=== PATIENT | male | born 1965 | race Caucasian/White ===

== ENCOUNTER 2020-11-15 10:59 | Emergency (ER) | payer MEDICARE | END 2020-11-15 12:15 | disposition left against medical advice (07) | LOC: ER1 10:59 | DX: R53.1 Weakness (principal); Z53.21 Procedure and treatment not carried out due to patient leaving prior to being seen by health care provider ==

== ENCOUNTER 2021-03-19 08:23 | Emergency (ER) | payer MEDICARE, OTHER | END 2021-03-19 13:43 | disposition home or self-care (01) | LOC: ER1 08:23 | DX: M54.5 Low back pain (principal); E11.9 Type 2 diabetes mellitus without complications; F17.200 Nicotine dependence, unspecified, uncomplicated; Z88.2 Allergy status to sulfonamides; Z88.0 Allergy status to penicillin | CPT/HCPCS: 82962; 96372; 99283; J1885 ==

== ENCOUNTER 2021-05-06 02:35 | Emergency (ER) | payer MEDICARE, OTHER ==
[2021-05-06 03:09] LABS: HEMOGLOBIN 13.8 gm/dl (14.0-17.5); RED BLOOD COUNT 4.08 M/UL (4.20-5.50); WHITE BLOOD COUNT 8.8 K/UL (4.5-11.0)
[2021-05-06 03:28] LABS: BUN/CREATININE RATIO 8 (0-10)
[2021-05-06 15:24] LABS: ACINETOBACTER BAUMANNII Not Detected (Negative); CANDIDA ALBICANS Not Detected (Negative); CANDIDA KRUSEI Not Detected (Negative); CANDIDA TROPICALIS Not Detected (Negative); ENTEROCOCCUS Not Detected (Negative); ESCHERICHIA COLI Not Detected (Negative); HAEMOPHILUS INFLUENZAE Not Detected (Negative); KLEBSIELLA OXYTOCA Not Detected (Negative); KLEBSIELLA PNEUMONIAE Not Detected (Negative); KPC-CARBAPENEM-RESISTANCE GENE Not Detected (Negative); PROTEUS Not Detected (Negative); PSEUDOMONAS AERUGINOSA Not Detected (Negative); SERRATIA MARCESANS Not Detected (Negative); STAPHYLOCOCCUS Not Detected (Negative); STAPHYLOCOCCUS AUREUS Not Detected (Negative); STREP AGALACTIAE (GROUP B) Not Detected (Negative); STREP PYOGENES (GROUP A) Not Detected (Negative); STREPTOCOCCUS Not Detected (Negative); mecA (METHICILLIN RESIST GENE Not Detected (Negative); vanA/B (VANCOMYCIN RESIST GENE Not Detected (Negative)
== END 2021-05-06 13:25 | disposition short-term general hospital (02) ==
LOC: ER1 02:35
PROVIDERS: Family Medicine
DX: L03.116 Cellulitis of left lower limb (principal); Z96.652 Presence of left artificial knee joint
CPT/HCPCS: 71045; 73562; 80053; 85025; 85652; 86140; 87040; 87070; 87077; 87150; 87186; 87205; 96374; 96375; 99284; J2543; J3370; J7050

== ENCOUNTER 2021-11-05 03:35 | Emergency (ER) | payer MEDICARE, OTHER ==
[2021-11-05 04:08] LABS: HEMOGLOBIN 13.9 gm/dl (14.0-17.5); RED BLOOD COUNT 4.17 M/UL (4.20-5.50); WHITE BLOOD COUNT 8.6 K/UL (4.5-11.0)
[2021-11-05 05:06] LABS: BUN/CREATININE RATIO 31 (0-10)
== END 2021-11-05 11:29 | disposition home or self-care (01) ==
LOC: ER1 03:35
PROVIDERS: Emergency Medicine
DX: F15.129 Other stimulant abuse with intoxication, unspecified (principal); F12.90 Cannabis use, unspecified, uncomplicated; F19.90 Other psychoactive substance use, unspecified, uncomplicated; R79.89 Other specified abnormal findings of blood chemistry; M25.462 Effusion, left knee; R73.9 Hyperglycemia, unspecified; R00.0 Tachycardia, unspecified; Z96.652 Presence of left artificial knee joint; Z20.822 Contact with and (suspected) exposure to COVID-19
CPT/HCPCS: 0240U; 70450; 71045; 73560; 80053; 80307; 81001; 83605; 83735; 84100; 85025; 87040; 87086; 93005; 96372; 96374; 96375; 99285; J2543; J3370; J3411; J7030

== ENCOUNTER 2022-03-16 21:22 | Emergency (ER) | payer MEDICARE, OTHER ==
[2022-03-16 21:56] LABS: HEMOGLOBIN 13.4 gm/dl (14.0-17.5); RED BLOOD COUNT 4.29 M/UL (4.20-5.50)
[2022-03-16 22:18] LABS: BUN/CREATININE RATIO 14 (0-10)
== END 2022-03-17 06:16 | disposition short-term general hospital (02) ==
LOC: ER1 21:22
PROVIDERS: Family Medicine
DX: M54.2 Cervicalgia (principal); W01.10XA Fall on same level from slipping, tripping and stumbling with subsequent striking against unspecified object, initial encounter; Z51.81 Encounter for therapeutic drug level monitoring
CPT/HCPCS: 36600; 70450; 72125; 72128; 80053; 80307; 81001; 82803; 83605; 85025; 85610; 85730; 86850; 86900; 86901; 93005; 99285; G0480

== ENCOUNTER 2022-04-20 17:30 | Inpatient (IN) | payer MEDICARE, OTHER ==
[~2022-04-20] VITALS: Ht 172.7 cm; Wt 56.7 kg
[2022-04-20 18:46] LABS: HEMOGLOBIN 12.9 gm/dl (14.0-17.5); RED BLOOD COUNT 4.18 M/UL (4.20-5.50); WHITE BLOOD COUNT 4.9 K/UL (4.5-11.0)
[2022-04-20 19:04] LABS: BORDETELLA PARAPERTUSSIS Not Detected (Not Detectd); BORDETELLA PERTUSSIS Not Detected (Not Detectd); CHLAMYDIA PNEUMONIAE Not Detected (Not Detectd); CORONAVIRUS HKU1 Not Detected (Not Detectd); CORONAVIRUS NL63 Not Detected (Not Detectd); CORONAVIRUS OC43 Not Detected (Not Detectd); CORONOAVIRUS 229E Not Detected (Not Detectd); HUMAN METAPNEUMOVIRUS Not Detected (Not Detectd); HUMAN RHINOVIRUS/ENTEROVIRUS Not Detected (Not Detectd); INFLUENZA A Not Detected (Not Detectd); INFLUENZA B Not Detected (Not Detectd); MYCOPLASMA PNEUMONIAE Not Detected (Not Detectd); PARAINFLUENZA VIRUS 1 Not Detected (Not Detectd); PARAINFLUENZA VIRUS 2 Not Detected (Not Detectd); PARAINFLUENZA VIRUS 3 Not Detected (Not Detectd); PARAINFLUENZA VIRUS 4 Not Detected (Not Detectd); RESPIRATORY SYNCYTIAL VIRUS Not Detected (Not Detectd)
[2022-04-20 19:41] LABS: BUN/CREATININE RATIO 15 (0-10)
[2022-04-20 20:11] LABS: SARS-CoV-2 NOT DETECTED (Not Detectd)
[2022-04-21 07:05] LABS: HEMOGLOBIN 12.1 gm/dl (14.0-17.5); RED BLOOD COUNT 3.95 M/UL (4.20-5.50); WHITE BLOOD COUNT 3.8 K/UL (4.5-11.0)
[2022-04-21 07:29] LABS: BUN/CREATININE RATIO 17 (0-10)
[2022-04-21] MEDS ORDERED: ALPRAZOLAM2 MG PO (11:44)
[2022-04-21] MEDS ORDERED: LANTUS SOL100 UNIT/1 SQ (11:45)
[2022-04-21] MEDS ORDERED: PERCOCET 7.5-31 EACH PO (11:45)
[2022-04-21] MEDS ORDERED: GABAPENTIN300 MG PO (11:45)
[2022-04-21] MEDS ORDERED: CYCLOBENZAPRINE10 MG PO (11:45)
--- NOTE | 2022-04-21 16:11 | NUR ---
MULTIPLE CALLS MADE TO PT'S SISTER - ROSE MARY MARVIN @ [phone] - TO OBTAIN MORE INFORMATION ABOUT PT'S CONDITION AND LIVING ARRANGEMENTS. VOICEMAIL BOX IS FULL. WILL ATTEMPT ANOTHER CALL BEFORE END OF SHIFT
[2022-04-22 03:44] LABS: BUN/CREATININE RATIO 18 (0-10)
[2022-04-24 02:57] LABS: HEMOGLOBIN 11.9 gm/dl (14.0-17.5); RED BLOOD COUNT 3.92 M/UL (4.20-5.50)
[2022-04-24 03:02] LABS: WHITE BLOOD COUNT 8.9 K/UL (4.5-11.0)
[2022-04-24 03:19] LABS: BUN/CREATININE RATIO 20 (0-10)
--- NOTE | 2022-04-24 09:00 | NUR ---
PATIENT ON THE PHONE WITH [facility] REQUESTING TO BE TRANSFERRED. PATIENT BEING VERY HOSTILE TOWARD STAFF AND USING INAPPROPRIATE LANGUAGE. PT REQUESTING TO SIGN OUT AMA. DR. OSIRIS ANTHONY.
[2022-04-26 14:45] LABS: HEMOGLOBIN 12.2 gm/dl (14.0-17.5); RED BLOOD COUNT 3.98 M/UL (4.20-5.50)
[2022-04-26 15:08] LABS: BUN/CREATININE RATIO 30 (0-10)
[2022-04-27 06:41] LABS: HEMOGLOBIN 11.3 gm/dl (14.0-17.5); RED BLOOD COUNT 3.78 M/UL (4.20-5.50); WHITE BLOOD COUNT 3.5 K/UL (4.5-11.0)
[2022-04-27 07:01] LABS: BUN/CREATININE RATIO 26 (0-10)
[2022-04-28 10:52] LABS: RED BLOOD COUNT 3.87 M/UL (4.20-5.50)
[2022-04-28 10:56] LABS: WHITE BLOOD COUNT 5.1 K/UL (4.5-11.0)
[2022-04-28 11:30] LABS: BUN/CREATININE RATIO 34 (0-10)
[2022-04-30 06:57] LABS: BUN/CREATININE RATIO 40 (0-10)
[2022-04-30 07:02] LABS: HEMOGLOBIN 11.4 gm/dl (14.0-17.5); RED BLOOD COUNT 3.72 M/UL (4.20-5.50); WHITE BLOOD COUNT 4.9 K/UL (4.5-11.0)
[2022-05-01 06:20] LABS: HEMOGLOBIN 11.5 gm/dl (14.0-17.5); RED BLOOD COUNT 3.73 M/UL (4.20-5.50); WHITE BLOOD COUNT 4.6 K/UL (4.5-11.0)
[2022-05-01 06:44] LABS: BUN/CREATININE RATIO 35 (0-10)
--- NOTE | 2022-05-01 15:10 | NUR ---
ENEMA GIVEN TO PATIENT. STAFF ASSISTED PATIENT TO BEDSIDE COMMODE WHERE HE HAD A XL FORMED BOWEL MOVEMENT.
[2022-05-02 04:08] LABS: HEMOGLOBIN 11.5 gm/dl (14.0-17.5); RED BLOOD COUNT 3.72 M/UL (4.20-5.50)
[2022-05-02 04:09] LABS: WHITE BLOOD COUNT 5.8 K/UL (4.5-11.0)
[2022-05-02 04:56] LABS: BUN/CREATININE RATIO 33 (0-10)
[2022-05-02] MEDS ORDERED: CHRONULAC20 GM/30 M PO (11:26)
[2022-05-02] MEDS ORDERED: ALPRAZOLAM0.5 MG PO (11:26)
[2022-05-02] MEDS ORDERED: ROXICODONE TAB 55 MG PO (11:26)
[2022-05-02] MEDS ORDERED: LOPRESSOR 25 MG25 MG PO (11:26)
[2022-05-02] MEDS ORDERED: DOCUSATE SODIU100 MG PO (11:26)
[2022-05-02] MEDS ORDERED: LANTUS INS100 UTS/M1 SC (11:26)
[2022-05-02] MEDS ORDERED: MAG-OX 400 TAB400 MG PO (11:26)
[2022-05-02] MEDS ORDERED: FLOMAX 0.4 MG0.4 MG PO (11:26)
[2022-05-02] MEDS ORDERED: POLYETHYLENE GL17 GM PO (11:26)
[2022-05-02] MEDS ORDERED: ACETAMINOPHEN325 MG PO (11:26)
[2022-05-02] MEDS ORDERED: BISACODYL10 MG PR (11:26)
[2022-05-02] MEDS ORDERED: ZYVOX600 MG PO (11:26)
[2022-05-02] MEDS ORDERED: HUMALOG 10100 UNITS/ SC (11:29)
[2022-05-02] MEDS ORDERED: ENOXAPARIN40 MG/0.4 SC (12:36)
== END 2022-05-03 04:57 | disposition short-term general hospital (02) | DRG 917 ==
LOC: ER1 17:30 → MED SURG 4 21:12 → CDU 21:12 → MED SURG 4 04-21 00:05
PROVIDERS: Internal Medicine; Internal Medicine Infectious Disease; Preventive Medicine Occupational Medicine; ADMIT Internal Medicine
DX: T42.4X1A Poisoning by benzodiazepines, accidental (unintentional), initial encounter (principal); G82.50 Quadriplegia, unspecified; G92.8 Other toxic encephalopathy; L89.153 Pressure ulcer of sacral region, stage 3; N39.0 Urinary tract infection, site not specified; Z20.822 Contact with and (suspected) exposure to COVID-19; T40.2X1A Poisoning by other opioids, accidental (unintentional), initial encounter; F19.10 Other psychoactive substance abuse, uncomplicated; F12.10 Cannabis abuse, uncomplicated; F10.10 Alcohol abuse, uncomplicated; E11.9 Type 2 diabetes mellitus without complications; G89.29 Other chronic pain; M54.9 Dorsalgia, unspecified; F31.9 Bipolar disorder, unspecified; K59.00 Constipation, unspecified; F41.9 Anxiety disorder, unspecified; B95.2 Enterococcus as the cause of diseases classified elsewhere; E83.42 Hypomagnesemia; N31.9 Neuromuscular dysfunction of bladder, unspecified; D69.6 Thrombocytopenia, unspecified; M50.30 Other cervical disc degeneration, unspecified cervical region; R33.9 Retention of urine, unspecified; B19.20 Unspecified viral hepatitis C without hepatic coma; F17.210 Nicotine dependence, cigarettes, uncomplicated; Z99.3 Dependence on wheelchair; Z98.1 Arthrodesis status; Z79.4 Long term (current) use of insulin; Z88.0 Allergy status to penicillin; Z88.2 Allergy status to sulfonamides
CPT/HCPCS: 36415; 36600; 70450; 71045; 72040; 74018; 80053; 80061; 80307; 81001; 82009; 82140; 82550; 82553; 82607; 82803; 82962; 83036; 83605; 83690; 83735; 83880; 84439; 84443; 84484; 85025; 85652; 86140; 87040; 87077; 87086; 87186; 87633; 92526; 92610; 93005; 97110; 97116; 97161; 97167; 97530; 97530-GP-CQ; 97535; 99285; A6212; G0480; J1650; J2310; J3475

== ENCOUNTER 2022-06-01 16:11 | Emergency (ER) | payer MEDICARE, OTHER ==
[~2022-06-01 16:11] MED LIST: ACETAMINOPHEN325 MG PO; ALPRAZOLAM0.5 MG PO; ALPRAZOLAM2 MG PO; BISACODYL10 MG PR; CHRONULAC20 GM/30 M PO; CYCLOBENZAPRINE10 MG PO; DOCUSATE SODIU100 MG PO; ENOXAPARIN40 MG/0.4 SC; FLOMAX 0.4 MG0.4 MG PO; GABAPENTIN300 MG PO; HUMALOG 10100 UNITS/ SC; LANTUS INS100 UTS/M1 SC; LANTUS SOL100 UNIT/1 SQ; LOPRESSOR 25 MG25 MG PO; MAG-OX 400 TAB400 MG PO; PERCOCET 7.5-31 EACH PO; POLYETHYLENE GL17 GM PO; ROXICODONE TAB 55 MG PO; ZYVOX600 MG PO
[2022-06-01 17:32] LABS: HEMOGLOBIN 12.9 gm/dl (14.0-17.5); RED BLOOD COUNT 4.2 M/UL (4.20-5.50); WHITE BLOOD COUNT 11.3 K/UL (4.5-11.0)
[2022-06-01 17:59] LABS: BUN/CREATININE RATIO 18 (0-10)
== END 2022-06-01 21:40 | disposition left against medical advice (07) ==
LOC: ER1 16:11
PROVIDERS: Emergency Medicine
DX: Z53.21 Procedure and treatment not carried out due to patient leaving prior to being seen by health care provider (principal)
CPT/HCPCS: 71045; 80053; 81001; 83605; 85025; 87077; 87086; 87186; 93005

== ENCOUNTER 2022-06-06 15:57 | Emergency (ER) | payer MEDICARE, OTHER | END 2022-06-06 20:31 | disposition left against medical advice (07) | LOC: ER1 15:57 | DX: R07.81 Pleurodynia (principal); M79.631 Pain in right forearm; E11.9 Type 2 diabetes mellitus without complications; F17.200 Nicotine dependence, unspecified, uncomplicated; Z88.2 Allergy status to sulfonamides; Z88.0 Allergy status to penicillin; W01.0XXA Fall on same level from slipping, tripping and stumbling without subsequent striking against object, initial encounter | CPT/HCPCS: 71111; 73090; 99283 ==